=== PATIENT | female | born 1975 | race African-American/Black ===

== ENCOUNTER 2017-06-03 08:46 | Emergency (ER) | payer SELFPAY ==
[~2017-06-03] VITALS: Ht 157.5 cm; Wt 120.5 kg
[2017-06-03] MEDS ORDERED: MIGRAINE PO (08:52)
[2017-06-03] MEDS ORDERED: BUTA1CAP51 PO (08:52)
[2017-06-03] MEDS ORDERED: NORT10 PO (08:52)
[2017-06-03] MEDS ORDERED: HUMLIS7525 SQ (08:52)
[2017-06-03] MEDS ORDERED: METF500T4 PO (08:52)
[2017-06-03 08:57] LABS: GLUCOSE,POINT OF CARE 329 MG/DL (70-110)
[2017-06-03] MEDS ORDERED: INSULIN REGULAR, HUMAN 100 UNITS/ML IVP ONE ×2 (09:15→11:45)
[2017-06-03] MEDS ORDERED: ALBUTEROL SULFATE 2.5 MG/0.5 ML NEB SOLUTION NEB ONE (09:30)
[2017-06-03] MEDS ORDERED: IPRATROPIUM BROMIDE 0.5 MG/2.5 ML NEB SOLUTION NEB ONE (09:30)
[2017-06-03 09:32] LABS: BASOPHILS % (AUTO) 0.4 % (0.0-2.0); EOSINOPHILS % (AUTO) 1.9 % (1.0-6.0); HEMATOCRIT 36.5 % (36-46); HEMOGLOBIN 12.3 g/dL (12.0-16.0); LYMPHOCYTES # (AUTO) 2.2 K/uL (1.0-4.8); LYMPHOCYTES % (AUTO) 22.7 % (22.0-44.0); MEAN CORPUSCULAR HEMOGLOBIN 27.9 pg (26.0-34.0); MEAN CORPUSCULAR HGB CONC 33.6 G/dL (31.0-37.0); MEAN CORPUSCULAR VOLUME 83 fL (80-100); MONOCYTES % (AUTO) 10.2 % (2.0-9.0); NEUTROPHILS # (AUTO) 6.4 K/uL (1.8-7.7); NEUTROPHILS % (AUTO) 64.8 % (40.0-70.0); PLATELET COUNT (AUTO) 310 K/uL (150-450); RED CELL DISTRIBUTION WIDTH 14.5 % (11.5-14.5); WHITE BLOOD COUNT (AUTO) 9.8 K/uL (4.5-11.0)
[2017-06-03 09:39] LABS: ANION GAP 9 mmol/L (8-16); CALCIUM, TOTAL 8.8 mg/dL (8.8-10.5); CARBON DIOXIDE 27 mmol/L (22-29); CHLORIDE 102 mmol/L (98-107); CREATININE 0.72 mg/dL (0.60-1.30); GLOMERULAR FILTR. RATE CALC > 60 mL/min (>60); POTASSIUM 3.7 mmol/L (3.5-5.1); SODIUM SERUM 138 mmol/L (136-145); UREA NITROGEN, BLOOD 8 mg/dL (7-18)
[2017-06-03 09:45] LABS: ALANINE AMINOTRANSFERASE 13 U/L (12-78); ALBUMIN 3.1 g/dL (3.4-5.0); ASPARTATE AMINOTRANSFERASE 8 U/L (15-37); BILIRUBIN,TOTAL 0.4 mg/dL (0.1-1.0); TOTAL PROTEIN, SERUM 7.4 g/dL (6.4-8.2)
[2017-06-03 10:00] LABS: B-TYPE NATRIURETIC PEPTIDE 32 pg/mL (0-100)
[2017-06-03 10:32] LABS: GLUCOSE,POINT OF CARE 275 MG/DL (70-110)
[2017-06-03] MEDS ORDERED: SODIUM CHLORIDE 0.9% 500 ML IV ONE (11:15)
[2017-06-03 11:46] LABS: GLUCOSE,POINT OF CARE 317 MG/DL (70-110)
[2017-06-03] MEDS ORDERED: IBUPROFEN 800 MG TABLET PO ONE (12:00)
[2017-06-03] MEDS ORDERED: ALBUTEROL SULFATE HFA 90 MCG/PUFF 8 GM INHALER IH ONE (12:00)
[2017-06-03 14:02] VITALS: BP 152/77
[2017-06-03 14:47] LABS: GLUCOSE,POINT OF CARE 251 MG/DL (70-110)
== END 2017-06-03 14:15 | disposition home or self-care (01) ==
LOC: EMS 08:48
DX: J02.9 Acute pharyngitis, unspecified (principal); J40 Bronchitis, not specified as acute or chronic; E11.65 Type 2 diabetes mellitus with hyperglycemia; G43.909 Migraine, unspecified, not intractable, without status migrainosus; Z79.4 Long term (current) use of insulin; Z88.0 Allergy status to penicillin
CPT/HCPCS: 36415; 71010; 80053; 82962; 83880; 84703; 85025; 94640; 96361; 96374; 96376; 99285; J1815; J7040; J7613; J3535